=== PATIENT | male | born 1995 | race Two or more races ===

== ENCOUNTER 2024-08-11 20:54 | Inpatient (IN) | payer BC, OTHER ==
[~2024-08-11] VITALS: Ht 175.3 cm; Wt 102.1 kg
[2024-08-11 21:22] LABS: Urine Bacteria None Seen /hpf (None Seen)
[2024-08-11 21:35] LABS: Basophils # (auto) 0.1 10 ^3/uL (0-0.2); Basophils % (auto) 0.3 % (0.0-2.0); Eosinophils # (auto) 0 10 ^3/uL (0-0.8); Eosinophils % (auto) 0.2 % (0.0-7.0); Hematocrit 44.8 % (41.0-53.0); Hemoglobin 15.3 g/dL (13.5-17.5); Lymphocytes # (auto) 1.8 10 ^3/uL (0.4-5.4); Lymphocytes % (auto) 11.4 % (10.0-50.0); Mean Corpuscular Hgb Conc. 34.2 g/dL (32.0-36.0); Mean Corpuscular Volume 87.7 fL (80.0-100.0); Monocytes # (auto) 1.4 10 ^3/uL (0-1.3); Monocytes % (auto) 8.8 % (0.0-12.0); Neutrophils # (auto) 12.4 10 ^3/uL (1.6-8.6); Neutrophils % (auto) 79.3 % (37.0-80.0); Nucleated Red Blood Cells % 0.1 %; Platelet Count (auto) 265 10^3/uL (140-450); Red Blood Cells 5.11 10^6/uL (4.5-5.90); Red Cell Distribution Width 14.2 % (11.8-14.3); White Blood Cell 15.6 10^3/uL (4.4-10.8)
[2024-08-11 21:52] LABS: Urine Blood 1+ /uL (Negative); Urine Clarity Clear (Clear); Urine Color Yellow (Yellow); Urine Mucus FEW (None Seen); Urine Protein, UAD 1+ (Negative); Urine Urobilinogen 4 mg/dL (Negative); Urine WBC 2 /hpf (0 - 3)
[2024-08-11 21:53] LABS: Urine Specific Gravity > 1.050 (1.001-1.035)
[2024-08-11 21:55] LABS: Alanine Aminotransferase 37 U/L (7-40); Alkaline Phosphatase 99 U/L (46-116); Anion Gap 5 (5-15); Aspartate Aminotransferase 17 U/L (13-40); BUN/Creatinine Ratio 7.6 (10.0-20.0); Bilirubin, Total 1.3 mg/dL (0.2-1.0); Blood Urea Nitrogen 7 mg/dL (9-23); Calcium 9.9 mg/dL (8.7-10.4); Carbon Dioxide 26 mmol/L (20-31); Chloride 107 mmol/L (98-107); Glucose 104 mg/dL (74-106); Lipase 86 U/L (12-53); Sodium 138 mmol/L (136-145); Total Protein 8.2 g/dL (5.7-8.2)
[2024-08-11 22:04] LABS: Lactic Acid w/Reflex 2.6 mmol/L (0.4-2.0)
[2024-08-11] MEDS: SODIUM CHLORIDE 0.9% 1,000 ML IV ONE (23:42)
[2024-08-12] MEDS: metroNIDAZOLE 500MG/100ML 100 ML IV ONE (00:30)
[2024-08-12] MEDS: CIPROFLOXACIN 400MG/200ML 200 ML IV ONE (00:49)
[2024-08-12] MEDS ORDERED: NITROGLYCERIN 0.4 MG SL TAB SL PRN (01:30)
[2024-08-12] MEDS ORDERED: MORPHINE SULFATE INJ 2 MG/ml SYRG IV PRN (01:30)
[2024-08-12] MEDS: fentaNYL CITRATE 100 MCG/2 ML VL IV ONE (01:57)
[2024-08-12] MEDS: SODIUM CHLORIDE 0.9% 1,000 ML IV SCH (01:58)
[2024-08-12] MEDS: metroNIDAZOLE 500MG/100ML 100 ML IV SCH (06:11)
[2024-08-12] MEDS: HYDROcodone-ACET 5/325MG TAB PO PRN (06:26)
[2024-08-12 07:35] VITALS: PULSE 90; RESP 16; O2SAT 96
[2024-08-12] MEDS: CIPROFLOXACIN 400MG/200ML 200 ML IV SCH (10:00)
[2024-08-12] MEDS ORDERED: cefTRIAXone SOD 1,000 MG VL IM ONE (12:30)
[2024-08-12] MEDS: cefTRIAXone 1GM/50ML D5W 50 ML IV SCH (13:12)
[2024-08-12 13:56] LABS: Urine Bacteria None Seen /hpf (None Seen)
[2024-08-12 14:14] LABS: Alanine Aminotransferase 28 U/L (7-40); Albumin 3.9 g/dL (3.2-4.8); Alkaline Phosphatase 84 U/L (46-116); Anion Gap 8 (5-15); Aspartate Aminotransferase 19 U/L (13-40); BUN/Creatinine Ratio 11.1 (10.0-20.0); Bilirubin, Total 1.1 mg/dL (0.2-1.0); Blood Urea Nitrogen 8 mg/dL (9-23); Calcium 8.6 mg/dL (8.7-10.4); Carbon Dioxide 20 mmol/L (20-31); Chloride 109 mmol/L (98-107); Glucose 96 mg/dL (74-106); Lipase 68 U/L (12-53); Potassium 4.2 mmol/L (3.5-5.1); Sodium 137 mmol/L (136-145); Total Protein 6.2 g/dL (5.7-8.2)
[2024-08-12 14:57] LABS: Urine Blood TRACE /uL (Negative); Urine Clarity Clear (Clear); Urine Color Yellow (Yellow); Urine Mucus FEW (None Seen); Urine Protein, UAD TRACE (Negative); Urine Specific Gravity 1.026 (1.001-1.035); Urine Urobilinogen 2 mg/dL (Negative); Urine WBC 3 /hpf (0 - 3)
[2024-08-12 15:58] LABS: Basophils # (auto) 0 10 ^3/uL (0-0.2); Basophils % (auto) 0.2 % (0.0-2.0); Eosinophils # (auto) 0.1 10 ^3/uL (0-0.8); Eosinophils % (auto) 0.5 % (0.0-7.0); Hematocrit 42.9 % (41.0-53.0); Hemoglobin 14.5 g/dL (13.5-17.5); Lymphocytes % (auto) 14.9 % (10.0-50.0); Mean Corpuscular Hemoglobin 29.4 pg (28.0-32.0); Mean Corpuscular Hgb Conc. 33.8 g/dL (32.0-36.0); Mean Corpuscular Volume 86.9 fL (80.0-100.0); Monocytes # (auto) 1.2 10 ^3/uL (0-1.3); Monocytes % (auto) 9.1 % (0.0-12.0); Neutrophils # (auto) 9.9 10 ^3/uL (1.6-8.6); Neutrophils % (auto) 75.3 % (37.0-80.0); Platelet Count (auto) 238 10^3/uL (140-450); Red Blood Cells 4.94 10^6/uL (4.5-5.90); Red Cell Distribution Width 13.9 % (11.8-14.3); White Blood Cell 13.2 10^3/uL (4.4-10.8)
[2024-08-12] MEDS: ACETAMINOPHEN 325 MG TAB PO PRN (18:50)
[2024-08-12 20:02] VITALS: PULSE 104; RESP 22; O2SAT 94
[2024-08-12 23:40] VITALS: BP 118/72; PULSE 100; RESP 18; TEMP 99; O2SAT 95
[2024-08-13] VITALS (8 sets, daily range): BP systolic 103–120; BP diastolic 62–72; PULSE 85–103; RESP 17–20; TEMP 97.7–99.2; O2SAT 94–96
[2024-08-13] MEDS ORDERED: TRAZ-227 PO (04:37)
[2024-08-13 06:06] LABS: Basophils # (auto) 0 10 ^3/uL (0-0.2); Basophils % (auto) 0.3 % (0.0-2.0); Eosinophils # (auto) 0.1 10 ^3/uL (0-0.8); Eosinophils % (auto) 0.5 % (0.0-7.0); Hematocrit 41.3 % (41.0-53.0); Lymphocytes # (auto) 1.6 10 ^3/uL (0.4-5.4); Lymphocytes % (auto) 12.6 % (10.0-50.0); Mean Corpuscular Hemoglobin 29.6 pg (28.0-32.0); Mean Corpuscular Volume 87.2 fL (80.0-100.0); Monocytes # (auto) 1.3 10 ^3/uL (0-1.3); Monocytes % (auto) 9.9 % (0.0-12.0); Neutrophils # (auto) 9.7 10 ^3/uL (1.6-8.6); Neutrophils % (auto) 76.7 % (37.0-80.0); Platelet Count (auto) 254 10^3/uL (140-450); Red Blood Cells 4.74 10^6/uL (4.5-5.90); Red Cell Distribution Width 13.8 % (11.8-14.3); White Blood Cell 12.7 10^3/uL (4.4-10.8)
[2024-08-13 06:34] LABS: Alanine Aminotransferase 24 U/L (7-40); Albumin 4.2 g/dL (3.2-4.8); Alkaline Phosphatase 82 U/L (46-116); Anion Gap 5 (5-15); Aspartate Aminotransferase 13 U/L (13-40); BUN/Creatinine Ratio 8.1 (10.0-20.0); Blood Urea Nitrogen 6 mg/dL (9-23); Carbon Dioxide 22 mmol/L (20-31); Chloride 108 mmol/L (98-107); Glucose 86 mg/dL (74-106); Potassium 3.3 mmol/L (3.5-5.1); Sodium 135 mmol/L (136-145)
[2024-08-13 06:35] LABS: Bilirubin, Total 1.1 mg/dL (0.2-1.0); Total Protein 6.9 g/dL (5.7-8.2)
[2024-08-13] MEDS: POTASSIUM EFFERVESENT TAB 25 MEQ PO ONE (15:11)
[2024-08-13] MEDS: traZODone HCL 50 MG TAB PO SCH (22:00)
[2024-08-13] MEDS: LACTULOSE 20Gm/30ML SOLN PO SCH (22:17)
[2024-08-14] VITALS (7 sets, daily range): BP systolic 107–147; BP diastolic 60–82; PULSE 63–104; RESP 18–20; TEMP 97.5–100; O2SAT 94–96
[2024-08-14] MEDS: GOLYTELY 4L KIT PO ONE (17:02)
[2024-08-14] MEDS: ONDANSETRON HCL 4 MG/2 ML VIAL IV PRN (18:47)
[2024-08-15] VITALS (9 sets, daily range): BP systolic 117–132; BP diastolic 52–85; PULSE 68–94; RESP 16–21; TEMP 97.8–99.1; O2SAT 93–100
[2024-08-15 06:17] LABS: INR 1.18 (0.9-1.15); Partial Thromboplastin Time 31.6 SEC (24.5-34.5); Prothrombin Time 12.4 sec (9.3-11.8)
[2024-08-15] MEDS ORDERED: SODIUM CHLORIDE LOCK 10 ML ONE (09:53)
[2024-08-15] MEDS: MIDAZOLAM HCL 5 MG/ML-1ML VIAL ONE (13:59)
[2024-08-15] MEDS: fentaNYL CITRATE 100 MCG/2 ML VL ONE (13:59)
[2024-08-15] MEDS: MIDAZOLAM HCL 2MG/2ML 2ml VIAL (1mg/ml) ONE (14:05)
[2024-08-16 05:00] VITALS: BP 104/52; PULSE 80; RESP 18; TEMP 98.5; O2SAT 93
[2024-08-16] MEDS ORDERED: LEVO500T91 PO (07:23)
[2024-08-16] MEDS ORDERED: METR-344 PO (07:23)
[2024-08-16 08:00] VITALS: PULSE 68; RESP 18; O2SAT 96
[2024-08-16 09:00] VITALS: BP 125/78; PULSE 68; RESP 18; TEMP 98.9; O2SAT 95
== END 2024-08-16 10:30 | disposition home or self-care (01) | DRG 372 ==
LOC: ER 20:54 → TELE 08-12 01:24 → TELE-E-ADS 08-12 23:18
PROVIDERS: ADMIT Internal Medicine; ATTEND Nurse Practitioner
PROC: 0DJD8ZZ Inspection of Lower Intestinal Tract, Via Natural or Artificial Opening Endoscopic (ICD-10-PCS; principal; 2024-08-15 13:55)
DX: A04.9 Bacterial intestinal infection, unspecified (principal); E87.20 Acidosis, unspecified; K57.32 Diverticulitis of large intestine without perforation or abscess without bleeding; E80.4 Gilbert syndrome; E66.9 Obesity, unspecified; E80.6 Other disorders of bilirubin metabolism; K64.8 Other hemorrhoids; Z68.33 Body mass index [BMI] 33.0-33.9, adult
CPT/HCPCS: 36415; 45378; 74018; 74176; 80053; 81001; 83605; 83690; 84484; 85025; 85610; 85730; 86850; 86900; 86901; G0378; J2250; J2405; J3490